=== PATIENT | male | born 1950 | race Caucasian/White ===

== ENCOUNTER 2020-02-23 13:11 | Outpatient (CLI) | payer OTHER, SELFPAY ==
--- NOTE | 2020-02-23 17:19 | ONC CON_ITS ---
Dr. Patel New Patient Note Patient: Torito Stevens Unit #: [id number]: 1950 Dicatated By: Max Patel M.D.Date of Visit: Feb 23, 2020 Onc MED New Patient/Consult Referring Physician: Selma Taylor A.P.N. History of Present Illness: Mr. 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 Incidental focal activity and level 7 cervical lymph node however has been stable in size since 2013 thus could be reactive. subsequently in September 2017 he underwent bilateral tonsillectomy, panendoscopy with biopsies, p16 negative, As per medical oncology note from October 14, 2017, patient was treated with combined chemoradiation with cisplatinHis follow-up CT PET scan done in June 2018 showed residual focus of subtle FDG activity within the central portion of left neck lesion, of uncertain significance, close follow-up was recommended. Patient underwent another follow-up CT PET scan on October 16, 2018 which showed focus of FDG activity in the central portion of treated left neck mass stable from exam 3 months prior. Since then patient moved from [place] to [facility] and now wants to establish his care here. His follow-up chest x-ray done by PMD on November 02, 2019 showed no active disease in the chest, questionable obstructive disease. Patient is still smoking about half pack a day, Recently he was evaluated by PMD with progressive hoarseness of voice and patient requested oncology consult in the setting he was referred to us. Patient denies any fever or chills, denies any nausea or vomiting denies any hemoptysis or hematemesis, denies any dysphagia or odynophagia, denies any new bony pains, denies any dry mouth Denies any neck swelling or lymphadenopathy, denies any thrush but, as per patient his voice is changing for the last couple of weeks, patient has mild productive cough with whitish phlegm. And still smoke about half pack a day. Past Medical History: Mr. Gonzalez medical history consists of anxiety, depression, gastroesophageal reflux disease, hepatitis C, hyperlipidemia, left eye scotoma, osteoarthritis, post traumatic stress disorder, and vitamin D deficiency. Past Surgical History: Mr. Gonzalez surgical/procedural history consists of hip joint replacement - left and tonsillectomy. Medications: Gabapentin 1 Tablet (of 900 mg) Oral daily, Simvastatin 1 Tablet (of 20 mg) Oral daily, traMADol HCl 1 Tablet (of 50 mg) Oral four times a day Allergies: No Known Allergies. Social History: Mr. Stevens is and he is an unknown. He is a daily smoker who has smoked 0.5 packs/day for 56 years. He is an active drinker. Family History: Mr. Stevens's mother at age 59: liver disease. pt states his grandmother had brain cancer. Review Of Symptoms: Review of Systems is not available for this patient. Vital Signs: Performed on Feb 23, 2020 15:04: 6, 26.79, 1.98 sq.m, 69.00 in, 99 %, 63 /min, 24 /min, 128/78 mm(hg), 98.5 F, and 181.4 lbs (HIGH). Performance Status: 0 - Fully active, able to carry on all predisease activities without restrictions. (ECOG) Physical Examination: ENMT - No mouth sores, no thrush, No cervical lymphadenopathy, Respiratory - Lungs are clear to auscultation, Cardiovascular - Regular rate and rhythm of heart, Abdomen - Soft, bowel sounds present, Extremities - .No visible edema. Lab/Imaging: Most recent lab results are not available for this patient. 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 At this point, we will consider follow-up CT PET scan, as is previous CT PET scan done in June and September 2018 showed persistent FDG uptake in the central portion of treated left neck mass. And also refer him to ENT Dr. Morales, for evaluation. Patient was advised to quit smoking and was offered any assistance he may need. And patient return to clinic after CT PET scan for further discussion Signed By: Max Patel M.D. <<Signature on File>>
== END 2020-02-23 13:12 | disposition home or self-care (01) ==
LOC: ONCMED 13:13
PROVIDERS: PCP Nurse Practitioner; Visit Provider Internal Medicine Hematology & Oncology
DX: C80.1 Malignant (primary) neoplasm, unspecified (principal); C79.89 Secondary malignant neoplasm of other specified sites; Z86.008 Personal history of in-situ neoplasm of other site; F17.210 Nicotine dependence, cigarettes, uncomplicated; Z92.3 Personal history of irradiation; Z92.21 Personal history of antineoplastic chemotherapy
CPT/HCPCS: 99203

== ENCOUNTER 2020-03-08 06:19 | Outpatient (CLI) | payer OTHER, SELFPAY ==
[2020-03-08 09:09] LABS: Basophils % 0.7 %; Eosinophils # 0.1 10^3/uL (0.0-0.8); Eosinophils % 2.2 %; Lymphocytes # 0.8 10^3/uL (0.8-4.8); Lymphocytes % 18.2 %; Mean Corpuscular HGB Conc 33.3 g/dL (30.0-36.0); Mean Corpuscular Hemoglobin 33.4 pg (28.0-34.0); Mean Corpuscular Volume 100.2 fL (80-94); Mean Platelet Volume 10.5 fL (7.4-10.4); Monocytes # 0.4 10^3/uL (0.2-0.9); Monocytes % 9.2 %; Neutrophils # 2.87 10^3/uL (1.8-7.7); Neutrophils % 69.5 %; Nucleated Red Blood Cells % 0 %; Platelet Count 166 10^3/cmm (130-400); Red Blood Count 4.19 10^6/uL (4.1-5.3); White Blood Count 4.1 10^3/uL (4.0-10.0)
[2020-03-08 09:29] LABS: Alanine Aminotransferase 16 U/L (0-41); Albumin Level 4.2 g/dL (3.5-5.2); Alkaline Phosphatase 69 IU/L (40-130); Anion Gap 14.2 (5-19); Aspartate Amino Transferase 17 U/L (0-40); Blood Urea Nitrogen 16 mg/dL (8-23); Calcium 9.2 mg/dL (8.5-10.5); Carbon Dioxide 25 mmol/L (22-29); Chloride 103 mmol/L (98-107); Globulin 2.9 g/dL (1.3-4.6); Glomerular Filtration Rate 73.9 mL/min (90-130); Glucose 103 mg/dL (65-115); Osmolality Calculated 287 mOsm/kg (285-295); Potassium 4.2 mmol/L (3.5-5.1); Sodium 138 mmol/L (136-145); Total Bilirubin 0.5 mg/dL (0.15-1.2); Total Protein 7.1 g/dL (6.6-8.7)
== END 2020-03-08 06:20 | disposition home or self-care (01) ==
LOC: ONCMED 06:20
PROVIDERS: PCP Nurse Practitioner; Visit Provider Internal Medicine Hematology & Oncology
DX: D02.0 Carcinoma in situ of larynx (principal)
CPT/HCPCS: 36415; 80053; 85025

== ENCOUNTER 2020-03-09 05:43 | Outpatient (CLI) | payer OTHER, SELFPAY ==
--- NOTE | 2020-03-09 15:54 | ONC FU_ITS ---
Dr. Patel follow up note Patient: Torito Stevens Unit #: [id number]: 1950 Dicatated By: Max Patel M.D.Date of Visit:Mar 09, 2020 Onc Med Follow-up/Prog Note History of Present Illness: Mr. 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 Incidental focal activity and level 7 cervical lymph node however has been stable in size since 2013 thus could be reactive. subsequently in September 2017 he underwent bilateral tonsillectomy, panendoscopy with biopsies, p16 negative, As per medical oncology note from October 14, 2017, patient was treated with combined chemoradiation with cisplatinHis follow-up CT PET scan done in June 2018 showed residual focus of subtle FDG activity within the central portion of left neck lesion, of uncertain significance, close follow-up was recommended. Patient underwent another follow-up CT PET scan on October 16, 2018 which showed focus of FDG activity in the central portion of treated left neck mass stable from exam 3 months prior. Since then patient moved from [place] to [facility] and now wants to establish his care here. His follow-up chest x-ray done by PMD on November 02, 2019 showed no active disease in the chest, questionable obstructive disease. Patient is still smoking about half pack a day, Recently he was evaluated by PMD with progressive hoarseness of voice and patient requested oncology consult in the setting he was referred to us. Follow-up CT PET scan done on March 01, 2020 showed no strong evidence for recurrent or metastatic disease Came for follow-up, denies any specific complaint except hoarseness of voice but is improving now since he has seen Dr. Morales and he was given steroid injection and oral antibiotics. Medications: Gabapentin 1 Tablet (of 900 mg) Oral daily, Simvastatin 1 Tablet (of 20 mg) Oral daily, traMADol HCl 1 Tablet (of 50 mg) Oral four times a day Allergies: No Known Allergies. Review of Systems: Review of Systems is not available for this patient. Vital Signs: Performed on Mar 09, 2020 09:19 Height - 69.00 in Weight - 180.8 lbs (LOW) BSA - 1.98 sq.m BMI - 26.70 Temperature - 98.4 F Pulse - 74 /min Respiration - 22 /min BP - 156/90 mm(hg) (HIGH) O2 Sat - 100 % Pain - 8 Performance Status: 0 - Fully active, able to carry on all predisease activities without restrictions. (ECOG) Physical Examination: ENMT - No mouth sores, no thrush, no jaundice, Respiratory - Lungs are clear to auscultation, Cardiovascular - Regular rate and rhythm of heart, Abdomen - Soft, bowel sounds present, Extremities - No visible edema or rash. Lab/Imaging: Most recent lab results are not available for this patient. 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 Moarles ENT, and was informed there is no evidence of local recurrence and CT PET scan done recently showed no evidence of recurrence of disease. His lab work-up looks reasonable and patient will return to clinic in 6 months with CBC CMP Signed By: Max Patel M.D. <<Signature on File>>
== END 2020-03-09 05:44 | disposition home or self-care (01) ==
LOC: ONCMED 05:44
PROVIDERS: PCP Nurse Practitioner; Visit Provider Internal Medicine Hematology & Oncology
DX: Z08 Encounter for follow-up examination after completed treatment for malignant neoplasm (principal); Z85.9 Personal history of malignant neoplasm, unspecified; Z86.008 Personal history of in-situ neoplasm of other site; F17.210 Nicotine dependence, cigarettes, uncomplicated; Z92.3 Personal history of irradiation; Z92.21 Personal history of antineoplastic chemotherapy
CPT/HCPCS: G0463

== ENCOUNTER 2020-09-06 12:54 | Outpatient (CLI) | payer OTHER, SELFPAY ==
[2020-09-06 13:55] LABS: Basophils % 0.8 %; Eosinophils # 0.2 10^3/uL (0.0-0.8); Eosinophils % 3.8 %; Hematocrit 37.7 % (42.0-52.0); Hemoglobin 12.9 g/dL (11.7-16.6); Lymphocytes # 0.8 10^3/uL (0.8-4.8); Lymphocytes % 14.3 %; Mean Corpuscular HGB Conc 34.2 g/dL (30.0-36.0); Mean Corpuscular Hemoglobin 33.1 pg (28.0-34.0); Mean Corpuscular Volume 96.7 fL (80-94); Mean Platelet Volume 9.6 fL (7.4-10.4); Monocytes # 0.4 10^3/uL (0.2-0.9); Monocytes % 7.1 %; Neutrophils # 3.93 10^3/uL (1.8-7.7); Neutrophils % 73.8 %; Nucleated Red Blood Cells % 0 %; Platelet Count 134 10^3/cmm (130-400); Red Cell Distribution Width 12.2 % (12.1-15.1); White Blood Count 5.3 10^3/uL (4.0-10.0)
[2020-09-06 14:18] LABS: Alanine Aminotransferase 10 U/L (0-41); Albumin Level 4.2 g/dL (3.5-5.2); Alkaline Phosphatase 63 IU/L (40-130); Anion Gap 13.5 (5-19); Aspartate Amino Transferase 17 U/L (0-40); Blood Urea Nitrogen 10 mg/dL (8-23); Calcium 8.8 mg/dL (8.5-10.5); Carbon Dioxide 25 mmol/L (22-29); Chloride 104 mmol/L (98-107); Globulin 2.9 g/dL (1.3-4.6); Glucose 92 mg/dL (65-115); Osmolality Calculated 285 mOsm/kg (285-295); Potassium 4.5 mmol/L (3.5-5.1); Sodium 138 mmol/L (136-145); Total Bilirubin 0.5 mg/dL (0.15-1.2); Total Protein 7.1 g/dL (6.6-8.7)
--- NOTE | 2020-09-06 15:42 | ONC FU_ITS ---
Dr. Patel follow up note Patient: Torito Stevens Unit #: [id number]: 1950 Dicatated By: Max Patel M.D.Date of Visit:September 06, 2020 Onc Med Follow-up/Prog Note History of Present Illness: Mr. 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 Incidental focal activity and level 7 cervical lymph node however has been stable in size since 2013 thus could be reactive. subsequently in September 2017 he underwent bilateral tonsillectomy, panendoscopy with biopsies, p16 negative, As per medical oncology note from October 14, 2017, patient was treated with combined chemoradiation with cisplatinHis follow-up CT PET scan done in June 2018 showed residual focus of subtle FDG activity within the central portion of left neck lesion, of uncertain significance, close follow-up was recommended. Patient underwent another follow-up CT PET scan on October 16, 2018 which showed focus of FDG activity in the central portion of treated left neck mass stable from exam 3 months prior. Since then patient moved from [place] to [facility] and now wants to establish his care here. His follow-up chest x-ray done by PMD on November 02, 2019 showed no active disease in the chest, questionable obstructive disease. Patient is still smoking about half pack a day, Recently he was evaluated by PMD with progressive hoarseness of voice and patient requested oncology consult in the setting he was referred to us. Came for follow-up, denies any specific complaints, no fever chills, no nausea or vomiting, no diarrhea constipation, no dysphagia now complaining of receding gum and dental problem for which he is being evaluated by dentist. And also following ENT on regular basis. Still smoking actively. Medications: Gabapentin 1 Tablet (of 900 mg) Oral daily, Simvastatin 1 Tablet (of 20 mg) Oral daily, traMADol HCl 1 Tablet (of 50 mg) Oral four times a day Allergies: No Known Allergies. Review of Systems: Review of Systems is not available for this patient. Vital Signs: Performed on September 06, 2020 14:51 Height - 69.00 in Weight - 187.0 lbs (HIGH) BSA - 2.01 sq.m BMI - 27.62 Temperature - 97.8 F (LOW) Pulse - 65 /min Respiration - 17 /min BP - 144/99 mm(hg) (HIGH) O2 Sat - 96 % Pain - 3 Performance Status: 0 - Fully active, able to carry on all predisease activities without restrictions. (ECOG) Physical Examination: ENMT - No mouth sores, no thrush, mild gingivitis and poor dentition, no cervical lymphadenopathy, Respiratory - Lungs are clear to auscultation, Cardiovascular - Regular rate and rhythm of heart, Abdomen - Soft, bowel sounds present, Extremities - No visible edema. Lab/Imaging: Most recent lab results are not available for this patient. 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 Patient was advised to quit smoking and was offered any assistance he may need Signed By: Max Patel M.D. <<Signature on File>>
== END 2020-09-06 12:55 | disposition home or self-care (01) ==
PROVIDERS: PCP Nurse Practitioner; Visit Provider Internal Medicine Hematology & Oncology
DX: C76.0 Malignant neoplasm of head, face and neck (principal); R49.0 Dysphonia; J04.0 Acute laryngitis; Z79.899 Other long term (current) drug therapy
CPT/HCPCS: 36415; 80053; 85025; 99214

== ENCOUNTER 2021-01-04 13:10 | Outpatient (CLI) | payer OTHER, SELFPAY | END 2021-01-04 13:11 | disposition home or self-care (01) | LOC: WOUND 13:12 | PROVIDERS: PCP Nurse Practitioner; Visit Provider Thoracic Surgery (Cardiothoracic Vascular Surgery) | DX: M27.2 Inflammatory conditions of jaws (principal); Y84.2 Radiological procedure and radiotherapy as the cause of abnormal reaction of the patient, or of later complication, without mention of misadventure at the time of the procedure; Y78.1 Therapeutic (nonsurgical) and rehabilitative radiological devices associated with adverse incidents; F17.210 Nicotine dependence, cigarettes, uncomplicated | CPT/HCPCS: 99212 ==

== ENCOUNTER 2021-01-04 15:14 | Outpatient (CLI) | payer OTHER, SELFPAY ==
--- NOTE | 2021-01-04 15:21 | XR_ITS ---
WS: [id number] CHEST 2 VIEWS HISTORY: ENCOUNTER SCREENING FOR RESPIRATORY DISORDERS COMPARISON: 11/02/2019 Lungs: Moderate pulmonary hyperexpansion. Flattening of the diaphragms and changes of emphysema. No p ulmonary nodule or mass. Cardiac size: Normal. Mediastinum/Aorta: Mild atherosclerosis aorta. Bones: Normal. XR/XR chest 2V* [id number] IMPRESSION: 1. Chronic emphysema. 2. No pneumonia or pulmonary nodule.
--- NOTE | 2021-01-04 15:43 | ECG_ITS ---
[facility] Test Date: 2021-01-04 Pat Name: Torito Stevens Department: Room: Gender: Male Pedigree Tracer: : 1950 Requested By: Mahendra Toro Order Number: [id number] Evan MD: NGHIA CHANEL Measurements Intervals [place] Rate: 55 P: 37 OH: 158 QRS: 16 QRSD: 90 T: 66 QT: 396 QTc: 379 Interpretive Statements SINUS BRADYCARDIA No previous ECG available for comparison Electronically Signed On 01-04-2021 19:28:16 CDT by NGHIA CHANEL [id number]
[2021-01-04 16:23] LABS: Basophils % 0.2 %; Eosinophils # 0.1 10^3/uL (0.0-0.8); Eosinophils % 2.5 %; Hematocrit 37.3 % (42.0-52.0); Hemoglobin 12.5 g/dL (11.7-16.6); Lymphocytes # 1.3 10^3/uL (0.8-4.8); Lymphocytes % 28.4 %; Mean Corpuscular HGB Conc 33.5 g/dL (30.0-36.0); Mean Corpuscular Hemoglobin 33.7 pg (28.0-34.0); Mean Corpuscular Volume 100.5 fl (80-94); Mean Platelet Volume 9.3 fL (7.4-10.4); Monocytes # 0.4 10^3/uL (0.2-0.9); Monocytes % 9.3 %; Neutrophils # 2.63 10^3/uL (1.8-7.7); Neutrophils % 59.4 %; Nucleated Red Blood Cells % 0 %; Platelet Count 105 10^3/cmm (130-400); Red Blood Count 3.71 10^6/uL (4.1-5.3); Red Cell Distribution Width 12.8 % (12.1-15.1); White Blood Count 4.4 10^3/uL (4.0-10.0)
[2021-01-04 17:00] LABS: Alanine Aminotransferase 14 U/L (0-41); Albumin Level 4.2 g/dL (3.5-5.2); Alkaline Phosphatase 61 IU/L (40-130); Anion Gap 14.2 (5-19); Aspartate Amino Transferase 21 U/L (0-40); Blood Urea Nitrogen 10 mg/dL (8-23); Calcium 8.8 mg/dL (8.5-10.5); Carbon Dioxide 26 mmol/L (22-29); Chloride 105 mmol/L (98-107); Globulin 2.7 g/dL (1.3-4.6); Glucose 87 mg/dL (65-115); Osmolality Calculated 290 mOsm/kg (285-295); Potassium 4.2 mmol/L (3.5-5.1); Sodium 141 mmol/L (136-145); Total Bilirubin 0.5 mg/dL (0.15-1.2); Total Protein 6.9 g/dL (6.6-8.7)
== END 2021-01-04 15:15 | disposition home or self-care (01) ==
LOC: RAD 15:17 → RT 15:18
PROVIDERS: PCP Nurse Practitioner; Visit Provider Thoracic Surgery (Cardiothoracic Vascular Surgery)
DX: Z13.83 Encounter for screening for respiratory disorder NEC (principal); R00.1 Bradycardia, unspecified; J43.9 Emphysema, unspecified
CPT/HCPCS: 36415; 71046; 80053; 85025; 93005

== ENCOUNTER 2021-01-06 13:50 | Outpatient (CLI) | payer OTHER, SELFPAY ==
--- NOTE | 2021-01-06 14:33 | CT_ITS ---
WS: [id number] CT CHEST TECHNIQUE: Contrast enhanced CT of the chest with coronal and sagittal reformatted images. CLINICAL INFORMATION: ENCOUNTER SCREENING FOR RESPIRATORY DISORDER COMPARISON: Radiograph January 04, 2021 DLP: 895.[address] scans at [facility] use at least one of these dose optimization techniques: automated e xposure control; mA and/or kV adjustment per patient size (includes targeted exams where dose is matc hed to clinical indication); or iterative reconstruction. FINDINGS: Mild chronic emphysematous changes. No acute pulmonary infiltrates. No focal pneumonia or pleural flu id. No suspicious pulmonary parenchymal abnormalities. No mediastinal or hilar lymphadenopathy. No axillary lymphadenopathy. Normal caliber thoracic aorta. Aortic Calcification. Cholelithiasis with prominent gallstone measurin g 12 mm. Adrenal glands are normal. Partially evaluated bilateral renal cysts. Normal GE junction. Mo derate hypertrophic changes thoracic spine. CT/CT chest w con* [id number] IMPRESSION: 1. Mild chronic emphysematous changes. No acute pulmonary infiltrates. No foca l pneumonia or pleural fluid. 2. No mediastinal or hilar lymphadenopathy. 3. Cholelithiasis. This can be followed up with ultrasound.
[2021-01-06] MEDS: iohexol 300 mg/mL 100 mL Btl IV (14:57)
== END 2021-01-06 13:51 | disposition home or self-care (01) ==
PROVIDERS: PCP Nurse Practitioner; Visit Provider Emergency Medicine
DX: Z13.83 Encounter for screening for respiratory disorder NEC (principal); K80.20 Calculus of gallbladder without cholecystitis without obstruction
CPT/HCPCS: 71260; Q9967

== ENCOUNTER 2021-01-09 09:50 | Outpatient (CLI) | payer OTHER, SELFPAY | END 2021-01-09 09:51 | disposition home or self-care (01) | LOC: WOUND 09:50 | PROVIDERS: PCP Nurse Practitioner; Visit Provider Emergency Medicine | DX: M27.2 Inflammatory conditions of jaws (principal) | CPT/HCPCS: G0277 ==

== ENCOUNTER 2021-01-10 09:43 | Outpatient (CLI) | payer OTHER, SELFPAY | END 2021-01-10 09:44 | disposition home or self-care (01) | LOC: WOUND 09:44 | PROVIDERS: PCP Nurse Practitioner; Visit Provider Thoracic Surgery (Cardiothoracic Vascular Surgery) | DX: M27.2 Inflammatory conditions of jaws (principal) | CPT/HCPCS: G0277 ==

== ENCOUNTER 2021-01-11 09:03 | Outpatient (CLI) | payer OTHER, SELFPAY | END 2021-01-11 09:04 | disposition home or self-care (01) | LOC: WOUND 09:03 | PROVIDERS: PCP Nurse Practitioner; Visit Provider Thoracic Surgery (Cardiothoracic Vascular Surgery) | DX: M27.2 Inflammatory conditions of jaws (principal) | CPT/HCPCS: G0277 ==

== ENCOUNTER 2021-01-12 09:04 | Outpatient (CLI) | payer OTHER, SELFPAY | END 2021-01-12 09:05 | disposition home or self-care (01) | LOC: WOUND 09:05 | PROVIDERS: PCP Nurse Practitioner; Visit Provider Emergency Medicine | DX: M27.2 Inflammatory conditions of jaws (principal) | CPT/HCPCS: G0277 ==

== ENCOUNTER 2021-01-13 09:08 | Outpatient (CLI) | payer OTHER, SELFPAY | END 2021-01-13 09:09 | disposition home or self-care (01) | LOC: WOUND 09:08 | PROVIDERS: PCP Nurse Practitioner; Visit Provider Surgery | DX: M27.2 Inflammatory conditions of jaws (principal) | CPT/HCPCS: G0277 ==

== ENCOUNTER 2021-01-16 09:17 | Outpatient (CLI) | payer OTHER, SELFPAY | END 2021-01-16 09:18 | disposition home or self-care (01) | LOC: WOUND 09:17 | PROVIDERS: PCP Nurse Practitioner; Visit Provider Emergency Medicine | DX: M27.2 Inflammatory conditions of jaws (principal) | CPT/HCPCS: G0277 ==

== ENCOUNTER 2021-01-17 09:04 | Outpatient (CLI) | payer OTHER, SELFPAY | END 2021-01-17 09:05 | disposition home or self-care (01) | LOC: WOUND 09:05 | PROVIDERS: PCP Nurse Practitioner; Visit Provider Thoracic Surgery (Cardiothoracic Vascular Surgery) | DX: M27.2 Inflammatory conditions of jaws (principal) | CPT/HCPCS: G0277 ==

== ENCOUNTER 2021-01-18 13:00 | Outpatient (CLI) | payer OTHER, SELFPAY | END 2021-01-18 13:01 | disposition home or self-care (01) | LOC: WOUND 13:00 | PROVIDERS: PCP Nurse Practitioner; Visit Provider Thoracic Surgery (Cardiothoracic Vascular Surgery) | DX: M27.2 Inflammatory conditions of jaws (principal) | CPT/HCPCS: G0277 ==

== ENCOUNTER 2021-01-19 09:16 | Outpatient (CLI) | payer OTHER, SELFPAY | END 2021-01-19 09:17 | disposition home or self-care (01) | LOC: WOUND 09:17 | PROVIDERS: PCP Nurse Practitioner; Visit Provider Emergency Medicine | DX: M27.2 Inflammatory conditions of jaws (principal) | CPT/HCPCS: G0277 ==

== ENCOUNTER 2021-01-20 09:14 | Outpatient (CLI) | payer OTHER, SELFPAY | END 2021-01-20 09:15 | disposition home or self-care (01) | LOC: WOUND 09:15 | PROVIDERS: PCP Nurse Practitioner; Visit Provider Nurse Practitioner Family | DX: M27.2 Inflammatory conditions of jaws (principal) | CPT/HCPCS: G0277 ==

== ENCOUNTER 2021-01-23 09:02 | Outpatient (CLI) | payer OTHER, SELFPAY | END 2021-01-23 09:03 | disposition home or self-care (01) | LOC: WOUND 09:03 | PROVIDERS: PCP Nurse Practitioner; Visit Provider Emergency Medicine | DX: M27.2 Inflammatory conditions of jaws (principal) | CPT/HCPCS: G0277 ==

== ENCOUNTER 2021-01-24 09:16 | Outpatient (CLI) | payer OTHER, SELFPAY | END 2021-01-24 09:17 | disposition home or self-care (01) | LOC: WOUND 09:17 | PROVIDERS: PCP Nurse Practitioner; Visit Provider Thoracic Surgery (Cardiothoracic Vascular Surgery) | DX: M27.2 Inflammatory conditions of jaws (principal) | CPT/HCPCS: G0277 ==

== ENCOUNTER 2021-01-25 10:00 | Outpatient (CLI) | payer OTHER, SELFPAY | END 2021-01-25 10:01 | disposition home or self-care (01) | LOC: WOUND 01-31 13:57 | PROVIDERS: PCP Nurse Practitioner; Visit Provider Thoracic Surgery (Cardiothoracic Vascular Surgery) | DX: M27.2 Inflammatory conditions of jaws (principal) | CPT/HCPCS: G0277 ==

== ENCOUNTER 2021-01-26 09:15 | Outpatient (CLI) | payer OTHER, SELFPAY | END 2021-01-26 09:16 | disposition home or self-care (01) | LOC: WOUND 09:17 | PROVIDERS: PCP Nurse Practitioner; Visit Provider Nurse Practitioner Family | DX: M27.2 Inflammatory conditions of jaws (principal) | CPT/HCPCS: G0277 ==

== ENCOUNTER 2021-01-27 09:14 | Outpatient (CLI) | payer OTHER, SELFPAY | END 2021-01-27 09:15 | disposition home or self-care (01) | LOC: WOUND 09:19 | PROVIDERS: PCP Nurse Practitioner; Visit Provider Surgery | DX: M27.2 Inflammatory conditions of jaws (principal) | CPT/HCPCS: G0277 ==

== ENCOUNTER 2021-01-30 09:21 | Outpatient (CLI) | payer OTHER, SELFPAY | END 2021-01-30 09:22 | disposition home or self-care (01) | LOC: WOUND 09:22 | PROVIDERS: PCP Nurse Practitioner; Visit Provider Emergency Medicine | DX: M27.2 Inflammatory conditions of jaws (principal) | CPT/HCPCS: G0277 ==

== ENCOUNTER 2021-01-31 09:08 | Outpatient (CLI) | payer OTHER, SELFPAY | END 2021-01-31 09:09 | disposition home or self-care (01) | LOC: WOUND 09:09 | PROVIDERS: PCP Nurse Practitioner; Visit Provider Thoracic Surgery (Cardiothoracic Vascular Surgery) | DX: M27.2 Inflammatory conditions of jaws (principal) | CPT/HCPCS: G0277 ==

== ENCOUNTER 2021-02-02 14:45 | Outpatient (CLI) | payer OTHER, SELFPAY | END 2021-02-02 14:46 | disposition home or self-care (01) | PROVIDERS: PCP Nurse Practitioner; Visit Provider Emergency Medicine | DX: M27.2 Inflammatory conditions of jaws (principal) | CPT/HCPCS: G0277 ==

== ENCOUNTER 2021-02-03 09:13 | Outpatient (CLI) | payer OTHER, SELFPAY | END 2021-02-03 09:14 | disposition home or self-care (01) | LOC: WOUND 09:14 | PROVIDERS: PCP Nurse Practitioner; Visit Provider Nurse Practitioner Family | DX: M27.2 Inflammatory conditions of jaws (principal) | CPT/HCPCS: G0277 ==

== ENCOUNTER 2021-02-06 13:05 | Outpatient (CLI) | payer OTHER, SELFPAY | END 2021-02-06 13:06 | disposition home or self-care (01) | LOC: WOUND 13:06 | PROVIDERS: PCP Nurse Practitioner; Visit Provider Emergency Medicine | DX: M27.2 Inflammatory conditions of jaws (principal) | CPT/HCPCS: G0277 ==

== ENCOUNTER 2021-02-07 09:27 | Outpatient (CLI) | payer OTHER, SELFPAY | END 2021-02-07 09:28 | disposition home or self-care (01) | LOC: WOUND 09:29 | PROVIDERS: PCP Nurse Practitioner; Visit Provider Thoracic Surgery (Cardiothoracic Vascular Surgery) | DX: M27.2 Inflammatory conditions of jaws (principal) | CPT/HCPCS: G0277 ==

== ENCOUNTER 2021-02-08 09:17 | Outpatient (CLI) | payer OTHER, SELFPAY | END 2021-02-08 09:18 | disposition home or self-care (01) | LOC: WOUND 09:18 | PROVIDERS: PCP Nurse Practitioner; Visit Provider Nurse Practitioner Family | DX: M27.2 Inflammatory conditions of jaws (principal) | CPT/HCPCS: G0277 ==

== ENCOUNTER 2021-02-10 09:19 | Outpatient (CLI) | payer OTHER, SELFPAY | END 2021-02-10 09:20 | disposition home or self-care (01) | LOC: WOUND 09:20 | PROVIDERS: PCP Nurse Practitioner; Visit Provider Surgery | DX: M27.2 Inflammatory conditions of jaws (principal) | CPT/HCPCS: G0277 ==

== ENCOUNTER 2021-02-13 09:58 | Outpatient (CLI) | payer OTHER, SELFPAY | END 2021-02-13 09:59 | disposition home or self-care (01) | LOC: WOUND 10:00 | PROVIDERS: PCP Nurse Practitioner; Visit Provider Nurse Practitioner Family | DX: M27.2 Inflammatory conditions of jaws (principal) | CPT/HCPCS: G0277 ==

== ENCOUNTER 2021-02-14 09:22 | Outpatient (CLI) | payer OTHER, SELFPAY | END 2021-02-14 09:23 | disposition home or self-care (01) | LOC: WOUND 09:23 | PROVIDERS: PCP Nurse Practitioner; Visit Provider Thoracic Surgery (Cardiothoracic Vascular Surgery) | DX: M27.2 Inflammatory conditions of jaws (principal) | CPT/HCPCS: G0277 ==

== ENCOUNTER 2021-02-15 09:10 | Outpatient (CLI) | payer OTHER, SELFPAY | END 2021-02-15 09:11 | disposition home or self-care (01) | LOC: WOUND 09:11 | PROVIDERS: PCP Nurse Practitioner; Visit Provider Thoracic Surgery (Cardiothoracic Vascular Surgery) | DX: M27.2 Inflammatory conditions of jaws (principal) | CPT/HCPCS: G0277 ==

== ENCOUNTER 2021-02-16 09:11 | Outpatient (CLI) | payer OTHER, SELFPAY | END 2021-02-16 09:12 | disposition home or self-care (01) | LOC: WOUND 09:11 | PROVIDERS: PCP Nurse Practitioner; Visit Provider Nurse Practitioner Family | DX: M27.2 Inflammatory conditions of jaws (principal) | CPT/HCPCS: G0277 ==

== ENCOUNTER 2021-02-23 08:55 | Outpatient (CLI) | payer OTHER, SELFPAY | END 2021-02-23 08:56 | disposition home or self-care (01) | LOC: WOUND 08:56 | PROVIDERS: PCP Nurse Practitioner; Visit Provider Nurse Practitioner Family | DX: M27.2 Inflammatory conditions of jaws (principal) | CPT/HCPCS: G0277 ==

== ENCOUNTER 2021-02-24 09:32 | Outpatient (CLI) | payer OTHER, SELFPAY | END 2021-02-24 09:33 | disposition home or self-care (01) | LOC: WOUND 09:33 | PROVIDERS: PCP Nurse Practitioner; Visit Provider Surgery | DX: M27.2 Inflammatory conditions of jaws (principal) | CPT/HCPCS: G0277 ==

== ENCOUNTER 2021-02-27 09:09 | Outpatient (CLI) | payer OTHER, SELFPAY | END 2021-02-27 09:10 | disposition home or self-care (01) | LOC: WOUND 09:10 | PROVIDERS: PCP Nurse Practitioner; Visit Provider Nurse Practitioner Family | DX: M27.2 Inflammatory conditions of jaws (principal) | CPT/HCPCS: 99183; G0277 ==

== ENCOUNTER 2021-02-28 09:59 | Outpatient (CLI) | payer OTHER, SELFPAY | END 2021-02-28 10:00 | disposition home or self-care (01) | LOC: WOUND 10:00 | PROVIDERS: PCP Nurse Practitioner; Visit Provider Nurse Practitioner Family | DX: M27.2 Inflammatory conditions of jaws (principal) | CPT/HCPCS: G0277 ==

== ENCOUNTER 2021-03-02 08:57 | Outpatient (CLI) | payer OTHER, SELFPAY | END 2021-03-02 08:58 | disposition home or self-care (01) | LOC: WOUND 08:58 | PROVIDERS: PCP Nurse Practitioner; Visit Provider Emergency Medicine | DX: M27.2 Inflammatory conditions of jaws (principal) | CPT/HCPCS: G0277 ==

== ENCOUNTER 2021-03-03 13:01 | Outpatient (CLI) | payer OTHER, SELFPAY | END 2021-03-03 13:02 | disposition home or self-care (01) | LOC: WOUND 13:02 | PROVIDERS: PCP Nurse Practitioner; Visit Provider Surgery | DX: M27.2 Inflammatory conditions of jaws (principal) | CPT/HCPCS: G0277 ==

== ENCOUNTER 2021-03-06 09:10 | Outpatient (CLI) | payer OTHER, SELFPAY | END 2021-03-06 09:11 | disposition home or self-care (01) | LOC: WOUND 09:11 | PROVIDERS: PCP Nurse Practitioner; Visit Provider Emergency Medicine | DX: M27.2 Inflammatory conditions of jaws (principal) | CPT/HCPCS: G0277 ==

== ENCOUNTER 2021-03-07 09:22 | Outpatient (CLI) | payer OTHER, SELFPAY | END 2021-03-07 09:23 | disposition home or self-care (01) | LOC: WOUND 09:23 | PROVIDERS: PCP Nurse Practitioner; Visit Provider Emergency Medicine | DX: M27.2 Inflammatory conditions of jaws (principal) | CPT/HCPCS: G0277 ==

== ENCOUNTER 2021-03-15 10:52 | Outpatient (CLI) | payer OTHER, SELFPAY ==
[2021-03-15 12:24] LABS: Alanine Aminotransferase 12 U/L (0-41); Albumin Level 4.4 g/dL (3.5-5.2); Alkaline Phosphatase 67 IU/L (40-130); Aspartate Amino Transferase 20 U/L (0-40); Blood Urea Nitrogen 14 mg/dL (8-23); Carbon Dioxide 27 mmol/L (22-29); Chloride 102 mmol/L (98-107); Globulin 2.9 g/dL (1.3-4.6); Glucose 69 mg/dL (65-115); Osmolality Calculated 285 mOsm/kg (285-295); Sodium 138 mmol/L (136-145); Total Bilirubin 0.4 mg/dL (0.15-1.2); Total Protein 7.3 g/dL (6.6-8.7)
[2021-03-15 12:35] LABS: Anion Gap 13.4 (5-19); Potassium 4.4 mmol/L (3.5-5.1)
[2021-03-15 13:42] LABS: Basophils % 0.9 %; Eosinophils # 0.1 10^3/uL (0.0-0.8); Eosinophils % 2.3 %; Hematocrit 36.6 % (42.0-52.0); Hemoglobin 12.6 g/dL (11.7-16.6); Lymphocytes % 21.9 %; Mean Corpuscular HGB Conc 34.4 g/dL (30.0-36.0); Mean Corpuscular Hemoglobin 33.1 pg (28.0-34.0); Mean Corpuscular Volume 96.1 fl (80-94); Mean Platelet Volume 9.8 fL (7.4-10.4); Monocytes # 0.4 10^3/uL (0.2-0.9); Neutrophils # 2.94 10^3/uL (1.8-7.7); Neutrophils % 66.9 %; Nucleated Red Blood Cells % 0 %; Platelet Count 158 10^3/cmm (130-400); Red Blood Count 3.81 10^6/uL (4.1-5.3); Red Cell Distribution Width 11.9 % (12.1-15.1); White Blood Count 4.4 10^3/uL (4.0-10.0)
--- NOTE | 2021-03-15 16:47 | ONC FU_ITS ---
Dr. Patel follow up note Patient: Torito Stevens Unit #: [id number]: 1950 Dicatated By: Max Patel M.D.Date of Visit:Mar 15, 2021 Onc Med Follow-up/Prog Note History of Present Illness: Mr. 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 Incidental focal activity and level 7 cervical lymph node however has been stable in size since 2013 thus could be reactive. subsequently in September 2017 he underwent bilateral tonsillectomy, panendoscopy with biopsies, p16 negative, As per medical oncology note from October 14, 2017, patient was treated with combined chemoradiation with cisplatinHis follow-up CT PET scan done in June 2018 showed residual focus of subtle FDG activity within the central portion of left neck lesion, of uncertain significance, close follow-up was recommended. Patient underwent another follow-up CT PET scan on October 16, 2018 which showed focus of FDG activity in the central portion of treated left neck mass stable from exam 3 months prior. Since then patient moved from [place] to [facility] and now wants to establish his care here. His follow-up chest x-ray done by PMD on November 02, 2019 showed no active disease in the chest, questionable obstructive disease. Patient is still smoking about half pack a day, Recently he was evaluated by PMD with progressive hoarseness of voice and patient requested oncology consult in the setting he was referred to us. Came for follow-up, denies any specific complaint except chronic hoarseness of voice, as per patient he has seen and followed by ENT, Dr. 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 As per patient recently he has seen oral surgeon for gum problem and he was diagnosed with radiation-induced dental issues and now getting a new denture. Denies any hemoptysis or hematemesis, denies any dysphagia, denies any sore throat, denies any weight loss, denies any new bony pains. Medications: Gabapentin 1 Tablet (of 900 mg) Oral daily, IBU 1 Tablet (of 600 mg) Oral four times a day PRN, Simvastatin 1 Tablet (of 20 mg) Oral daily Allergies: No Known Allergies. Review of Systems: Review of Systems is not available for this patient. Vital Signs: Performed on Mar 15, 2021 13:14 Height - 69.00 in Weight - 179.6 lbs (LOW) BSA - 1.97 sq.m BMI - 26.52 Temperature - 97.6 F (LOW) Pulse - 67 /min Respiration - 16 /min BP - 109/70 mm(hg) O2 Sat - 99 % Pain - 6 Fatigue - 4 Performance Status: 0 - Fully active, able to carry on all predisease activities without restrictions. (ECOG) Physical Examination: ENMT - No mouth sores, no thrush, no jaundice, no cervical lymphadenopathy, Respiratory - Lungs are clear to auscultation, Cardiovascular - Regular rate and rhythm of heart, Abdomen - Soft, bowel sounds present, Extremities - No visible edema. Lab/Imaging: Most recent lab results are not available for this patient. 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 Morales, and found him that his hoarseness is due to radiation-induced laryngitis. As per patient, he is following with ENT on regular basis Patient was also advised to quit smoking, and was offered any assistance he may need Return to clinic in 6 months Signed By: Max Patel M.D. <<Signature on File>>
== END 2021-03-15 10:53 | disposition home or self-care (01) ==
PROVIDERS: PCP Nurse Practitioner; Visit Provider Internal Medicine Hematology & Oncology
DX: Z08 Encounter for follow-up examination after completed treatment for malignant neoplasm (principal); Z85.89 Personal history of malignant neoplasm of other organs and systems; J04.0 Acute laryngitis; Z92.21 Personal history of antineoplastic chemotherapy; Z92.3 Personal history of irradiation
CPT/HCPCS: 36415; 80053; 85025; 99214

== ENCOUNTER 2021-10-05 12:35 | Oncology outpatient (recurring) (ONCR) | payer OTHER, SELFPAY ==
[2021-10-05 13:02] LABS: Basophils % 0.9 %; Eosinophils # 0.3 10^3/uL (0.0-0.8); Eosinophils % 5.7 %; Hematocrit 37.3 % (42.0-52.0); Hemoglobin 13.2 g/dL (11.7-16.6); Mean Corpuscular HGB Conc 35.4 g/dL (30.0-36.0); Mean Corpuscular Hemoglobin 32.8 pg (28.0-34.0); Mean Corpuscular Volume 92.8 fl (80-94); Mean Platelet Volume 9.7 fL (7.4-10.4); Monocytes # 0.3 10^3/uL (0.2-0.9); Monocytes % 6.5 %; Neutrophils # 2.97 10^3/uL (1.8-7.7); Neutrophils % 64.7 %; Nucleated Red Blood Cells % 0 %; Platelet Count 126 10^3/cmm (130-400); Red Blood Count 4.02 10^6/uL (4.1-5.3); Red Cell Distribution Width 11.9 % (12.1-15.1); White Blood Count 4.6 10^3/uL (4.0-10.0)
[2021-10-05 13:16] LABS: Alanine Aminotransferase 11 U/L (0-41); Albumin Level 4.4 g/dL (3.5-5.2); Alkaline Phosphatase 69 IU/L (40-130); Anion Gap 14.5 (5-19); Aspartate Amino Transferase 19 U/L (0-40); Blood Urea Nitrogen 15 mg/dL (8-23); Calcium 8.9 mg/dL (8.5-10.5); Carbon Dioxide 25 mmol/L (22-29); Chloride 105 mmol/L (98-107); Glucose 92 mg/dL (65-115); Osmolality Calculated 290 mOsm/kg (285-295); Potassium 4.5 mmol/L (3.5-5.1); Sodium 140 mmol/L (136-145); Total Bilirubin 0.7 mg/dL (0.15-1.2); Total Protein 7.4 g/dL (6.6-8.7)
== END 2021-10-19 23:59 | disposition home or self-care (01) ==
PROVIDERS: PCP Nurse Practitioner; Visit Provider Internal Medicine Hematology & Oncology
DX: D02.0 Carcinoma in situ of larynx (principal); F17.210 Nicotine dependence, cigarettes, uncomplicated
CPT/HCPCS: 36415; 80053; 85025; 99214

== ENCOUNTER 2022-05-14 12:47 | Outpatient (CLI) | payer OTHER, SELFPAY ==
--- NOTE | 2022-05-14 13:13 | US_ITS ---
WS: [id number] THYROID ULTRASOUND HISTORY: ELEVATED THYROID LEVEL COMPARISON: None available. Right lobe: 1.9 cm x 1.8 cm x 4.1 cm (w x ap x l). Volume: 7.2 cm3. Normal size and echotexture. No significant are dominant nodules are present. Left lobe: 1.5 cm x 1.5 cm x 3.0 cm (w x ap x l). Volume: 3.4 cm3. Normal size and echotexture. No significant or dominant nodules are present. Isthmus: 0.4 cm. US/US thyroid [id number] IMPRESSION: Normal thyroid ultrasound.
== END 2022-05-14 12:48 | disposition home or self-care (01) ==
LOC: RAD 12:50
PROVIDERS: PCP Nurse Practitioner; Visit Provider Nurse Practitioner
DX: R94.6 Abnormal results of thyroid function studies (principal)
CPT/HCPCS: 76536

== ENCOUNTER 2022-06-18 13:35 | Outpatient (CLI) | payer OTHER, SELFPAY ==
--- NOTE | 2022-06-18 14:00 | CT_ITS ---
WS: [id number] CT CHEST WITH INTRAVENOUS CONTRAST HISTORY: Chronic smoker and history of head/neck cancer TECHNIQUE: Contiguous 5 mm axial imaging performed on the thorax. Coronal and sagittal reformats are submitted. All CT scans at [facility] use at least one of these dose optimization techniques: automated exposure control; mA and/or kV adjustment per patient size (includes targeted exams where dose is matched to clinical indication); or iterative reconstruction. CONTRAST: Omnipaque 350; 95 mL IV. DLP: 400.16 mGy.cm COMPARISON: 01/06/2021 Lungs and central airway: Pulmonary hyperexpansion from emphysema. No pulmonary mass or nodule. No pn eumonia. Pleura: No pleural effusions. There is an area of very mild pleural thickening in the posterior later al mid RIGHT thorax which was also present on the prior study and unchanged. Heart and pericardium: Mild pericardial thickening. Mediastinum and tressa: No mediastinum or hilar adenopathy. Vessels: Mild atherosclerosis aorta. Normal size pulmonary artery. There is mild stenosis involving t he proximal LEFT subclavian artery. Chest wall and lower neck: No soft tissue masses. Upper abdomen: Small hiatal hernia. Visualized liver is negative. Low-attenuation masses within each kidney. These are probably cysts but complex. The most concerning is in the mid LEFT kidney in the la teral cortex measuring 2.0 cm. Hounsfield units are elevated. No interval change since 01/06/2021. Cho lelithiasis. Large calcification in the gallbladder. No adrenal mass. There is mild bilateral adrenal gland thickening. Osseous structures: No destructive process. CT/CT chest w con* [id number] IMPRESSION: 1. Chronic emphysema. No pulmonary mass or nodule. 2. No mediastinal or hilar adenopathy. 3. Cholelithiasis without acute cholecystitis. 4. Mild bilateral complex renal masses, probably complex cyst. Stable since .
[2022-06-18 14:06] LABS: Blood Urea Nitrogen 17 mg/dL (8-23)
[2022-06-18] MEDS: iohexol 350 mg/mL 500 mL Btl (per mL) IV (14:20)
== END 2022-06-18 13:36 | disposition home or self-care (01) ==
LOC: RAD 13:38
PROVIDERS: PCP Nurse Practitioner; Visit Provider Internal Medicine Hematology & Oncology
DX: D02.0 Carcinoma in situ of larynx (principal); J43.9 Emphysema, unspecified
CPT/HCPCS: 71260; 82565; 84520; Q9967

== ENCOUNTER 2022-07-10 14:43 | Oncology outpatient (recurring) (ONCR) | payer OTHER, SELFPAY ==
[2022-07-09 16:11] LABS: Basophils % 0.9 %; Eosinophils # 0.2 10^3/uL (0.0-0.8); Eosinophils % 4.4 %; Hematocrit 37.7 % (42.0-52.0); Hemoglobin 12.7 g/dL (11.7-16.6); Lymphocytes # 1.3 10^3/uL (0.8-4.8); Lymphocytes % 30.9 %; Mean Corpuscular HGB Conc 33.7 g/dL (30.0-36.0); Mean Corpuscular Hemoglobin 32.2 pg (28.0-34.0); Mean Corpuscular Volume 95.4 fl (80-94); Mean Platelet Volume 9.2 fL (7.4-10.4); Monocytes # 0.4 10^3/uL (0.2-0.9); Monocytes % 8.5 %; Neutrophils # 2.39 10^3/uL (1.8-7.7); Neutrophils % 55.1 %; Nucleated Red Blood Cells % 0 %; Platelet Count 121 10^3/cmm (130-400); Red Blood Count 3.95 10^6/uL (4.1-5.3); Red Cell Distribution Width 11.9 % (12.1-15.1); White Blood Count 4.3 10^3/uL (4.0-10.0)
[2022-07-09 16:45] LABS: Alanine Aminotransferase 13 U/L (0-41); Albumin Level 4.2 g/dL (3.5-5.2); Alkaline Phosphatase 48 U/L (40-130); Anion Gap 12.4 (5-19); Aspartate Amino Transferase 21 U/L (0-40); Blood Urea Nitrogen 19 mg/dL (8-23); Calcium 9.1 mg/dL (8.5-10.5); Carbon Dioxide 25 mmol/L (22-29); Chloride 103 mmol/L (98-107); Globulin 3.1 g/dL (1.3-4.6); Glucose 90 mg/dL (65-115); Osmolality Calculated 284 mOsm/kg (285-295); Potassium 4.4 mmol/L (3.5-5.1); Sodium 136 mmol/L (136-145); Total Bilirubin 0.5 mg/dL (0.15-1.2); Total Protein 7.3 g/dL (6.6-8.7)
== END 2022-07-20 23:59 | disposition home or self-care (01) ==
PROVIDERS: PCP Nurse Practitioner; Visit Provider Internal Medicine Hematology & Oncology
DX: D02.0 Carcinoma in situ of larynx (principal); K57.90 Diverticulosis of intestine, part unspecified, without perforation or abscess without bleeding; J43.9 Emphysema, unspecified; K80.20 Calculus of gallbladder without cholecystitis without obstruction; N28.1 Cyst of kidney, acquired; D69.6 Thrombocytopenia, unspecified; Z85.89 Personal history of malignant neoplasm of other organs and systems; F17.210 Nicotine dependence, cigarettes, uncomplicated
CPT/HCPCS: 80053; 85025; 99214

== ENCOUNTER 2023-03-27 12:08 | Oncology outpatient (recurring) (ONCR) | payer OTHER, SELFPAY ==
[2023-03-27 12:23] VITALS: BP 137/81; PULSE 77; RESP 16; TEMP 37.1; O2SAT 97
[2023-03-27 12:49] LABS: Basophils % 0.9 %; Eosinophils # 0.3 10^3/uL (0.0-0.8); Eosinophils % 5.6 %; Lymphocytes # 1.2 10^3/uL (0.8-4.8); Lymphocytes % 26.1 %; Mean Corpuscular HGB Conc 34.5 g/dL (30-55); Mean Corpuscular Volume 95.7 fl (82-101); Mean Platelet Volume 9.3 fL (7.4-10.4); Monocytes # 0.5 10^3/uL (0.2-0.9); Monocytes % 10.2 %; Neutrophils # 2.64 10^3/uL (1.8-7.7); Nucleated Red Blood Cells % 0 %; Platelet Count 125 10^3/cmm (157-399); Red Blood Count 4.18 10^6/uL (3.85-5.65); Red Cell Distribution Width 12.6 % (12.1-15.1); White Blood Count 4.63 10^3/uL (3.29-11.43)
[2023-03-27 13:04] LABS: Alanine Aminotransferase 9 U/L (0-41); Albumin Level 4.5 g/dL (3.5-5.2); Alkaline Phosphatase 78 U/L (40-130); Anion Gap 17.9 (5-19); Aspartate Amino Transferase 18 U/L (0-40); Blood Urea Nitrogen 19 mg/dL (8-23); Calcium 9.5 mg/dL (8.5-10.5); Carbon Dioxide 22 mmol/L (22-29); Chloride 102 mmol/L (98-107); Creatinine Clr Calc Pharmacy 63.4206; Globulin 3.2 g/dL (1.3-4.6); Glucose 99 mg/dL (65-115); Osmolality Calculated 286 mOsm/kg (285-295); Potassium 4.9 mmol/L (3.5-5.1); Sodium 137 mmol/L (136-145); Total Bilirubin 0.8 mg/dL (0.15-1.2); Total Protein 7.7 g/dL (6.6-8.7)
[2023-03-27 15:52] LABS: Thyroid Stimulating Hormone 4.01 uIU/mL (0.27-4.20)
== END 2023-04-21 23:59 | disposition home or self-care (01) ==
PROVIDERS: Internal Medicine Hematology & Oncology; Nurse Practitioner Family; PCP Nurse Practitioner; Visit Provider Internal Medicine Hematology & Oncology
DX: D02.0 Carcinoma in situ of larynx (principal); K57.90 Diverticulosis of intestine, part unspecified, without perforation or abscess without bleeding; J43.9 Emphysema, unspecified; K80.20 Calculus of gallbladder without cholecystitis without obstruction; N28.1 Cyst of kidney, acquired; D69.6 Thrombocytopenia, unspecified; F17.210 Nicotine dependence, cigarettes, uncomplicated; Z85.89 Personal history of malignant neoplasm of other organs and systems; R49.0 Dysphonia
CPT/HCPCS: 36415; 80053; 84443; 85025; 99214

== ENCOUNTER 2023-06-27 09:08 | Outpatient (CLI) | payer OTHER, SELFPAY ==
--- NOTE | 2023-06-27 09:12 | CT_ITS ---
WS: [id number] CT NECK TECHNIQUE: Contrast-enhanced CT of the neck with coronal and sagittal reformatted images. CLINICAL INFORMATION: head and neck cancer COMPARISON: None. DLP: 137.[address] scans at [facility] use at least one of these dose optimization techniques: automated e xposure control; mA and/or kV adjustment per patient size (includes targeted exams where dose is matc hed to clinical indication); or iterative reconstruction. FINDINGS: Normal RIGHT parotid gland. Presumed resection LEFT parotid gland. Normal submandibular gla nds. Postoperative or treatment-related changes in the LEFT neck with thickening of the platysma and induration in the LEFT neck soft tissues. No evidence of suspicious enhancing mass or lesion.. Partial opacification with mucosal thickening ethmoid air cells. Mild mucosal thickening in the maxil elvie sinuses. Sphenoid sinuses are well aerated with mild mucosal thickening. Mastoid air cells are w ell aerated. Normal posterior nasopharynx. Normal parapharyngeal fat. No evidence of supraglottic or glottic mass. Normal epiglottis. Normal glottis and subglottic airway. Normal thyroid. Lung apices ar e well aerated. No cervical lymphadenopathy. Moderate spondylitic changes cervical spine. IMPRESSION: 1. Presumed resection of the LEFT parotid gland with treatment-related changes in the LEFT neck. Ross atment-related thickening of the LEFT platysma with mild treatment related induration in the LEFT nec k soft tissues. 2. No cervical lymphadenopathy. No suspicious enhancing lesions. 3. Normal posterior nasopharynx. 4. No evidence of supraglottic or glottic mass. 5. Moderate spondylitic changes cervical spine. 6. Mild inflammatory changes in the paranasal sinuses.
[2023-06-27 09:57] LABS: Blood Urea Nitrogen 13 mg/dL (8-23)
[2023-06-27] MEDS: iohexol 350 mg/mL 500 mL Btl (per mL) IV (10:06)
== END 2023-06-27 09:09 | disposition home or self-care (01) ==
LOC: RAD 09:09
PROVIDERS: PCP Nurse Practitioner; Visit Provider Internal Medicine Hematology & Oncology
DX: C76.0 Malignant neoplasm of head, face and neck (principal); M62.89 Other specified disorders of muscle; M79.89 Other specified soft tissue disorders; Z98.890 Other specified postprocedural states
CPT/HCPCS: 70491; 82565; 84520; Q9967

== ENCOUNTER 2023-10-10 12:54 | Oncology outpatient (recurring) (ONCR) | payer OTHER, SELFPAY | END 2023-10-20 23:59 | disposition home or self-care (01) | LOC: ONCMED 12:55 | PROVIDERS: PCP Nurse Practitioner; Visit Provider Internal Medicine Medical Oncology | DX: D02.0 Carcinoma in situ of larynx (principal) | CPT/HCPCS: 99214 ==

== ENCOUNTER 2023-11-20 12:05 | Oncology outpatient (recurring) (ONCR) | payer OTHER, SELFPAY ==
--- NOTE | 2023-11-14 12:13 | USCV_ITS ---
StevensTorito mooney Age: 73 Gender: M : 1950 Exam Date: 11/14/2023 12:21 Ordering Phys: Selma Taylor Technologist: JERARDO Exam Location: [facility] Indication: SCREENING FOR AAA HISTORY: SCREENING FOR AAA Diameter (cm) AP x Transverse x Length Velocity (cm/s) Waveform Prox Aorta: 1.49 x 1.97 x 91.90 Mid Aorta: 1.43 x 1.70 x 122.60 Distal Aorta: 1.96 x 1.96 x 119.80 Right Iliac Prox: 1.00 x 1.14 x 85.30 Left Iliac Prox: 1.43 x 1.19 x 160.50 Stent Prox Landing x x Aneurysmal Sac Max x x Lt Lat Sac Dim Rt Lat Sac Dim Stent Dist Landing x x Right Iliac Stent x x Left Iliac Stent x x Right Renal Art Left Renal Art FINDINGS: Comparison: none available. Ectatic abdominal aorta with evidence of atherosclerotic plaque noted. No evidence of abdominal aortic aneurysm. There is evidence of atherosclerotic plaque no significan stenosis in the right common iliac artery. There is evidence of atherosclerotic plaque no significan stenosis in the left common iliac artery. CONCLUSIONS No evidence of abdominal aortic or bilateral iliac aneurysm. Dr. Waleska Shaffer DO (Electronically Signed) Final Date: 14 November 2023 14:00 S
== END 2023-11-20 23:59 | disposition home or self-care (01) ==
PROVIDERS: PCP Nurse Practitioner; Visit Provider Internal Medicine Medical Oncology
DX: Z08 Encounter for follow-up examination after completed treatment for malignant neoplasm (principal); Z85.831 Personal history of malignant neoplasm of soft tissue; F32.A Depression, unspecified; Z92.3 Personal history of irradiation; R49.0 Dysphonia; F17.210 Nicotine dependence, cigarettes, uncomplicated
CPT/HCPCS: 76706; 99214

== ENCOUNTER 2024-01-15 13:26 | Oncology outpatient (recurring) (ONCR) | payer OTHER, SELFPAY ==
[2024-01-15 13:56] LABS: Basophils % 0.8 %; Eosinophils # 0.1 10^3/uL (0.0-0.8); Eosinophils % 3.1 %; Hematocrit 37.6 % (37-53); Lymphocytes # 0.9 10^3/uL (0.8-4.8); Lymphocytes % 22.4 %; Mean Corpuscular HGB Conc 34.6 g/dL (30-55); Mean Corpuscular Hemoglobin 33.2 pg (27-33); Mean Corpuscular Volume 95.9 fl (82-101); Mean Platelet Volume 9.7 fL (7.4-10.4); Monocytes # 0.4 10^3/uL (0.2-0.9); Monocytes % 9.5 %; Neutrophils # 2.48 10^3/uL (1.8-7.7); Neutrophils % 63.9 %; Nucleated Red Blood Cells % 0 %; Platelet Count 102 10^3/cmm (157-399); Red Blood Count 3.92 10^6/uL (3.85-5.65); Red Cell Distribution Width 12.6 % (12.1-15.1); White Blood Count 3.88 10^3/uL (3.29-11.43)
[2024-01-15 14:20] LABS: Alanine Aminotransferase 11 U/L (0-41); Albumin Level 4.2 g/dL (3.5-5.2); Alkaline Phosphatase 67 U/L (40-130); Anion Gap 17.5 (5-19); Aspartate Amino Transferase 20 U/L (0-40); Blood Urea Nitrogen 14 mg/dL (8-23); Calcium 9.2 mg/dL (8.5-10.5); Carbon Dioxide 23 mmol/L (22-29); Chloride 100 mmol/L (98-107); Globulin 2.9 g/dL (1.3-4.6); Glucose 98 mg/dL (65-115); Osmolality Calculated 282 mOsm/kg (285-295); Potassium 4.5 mmol/L (3.5-5.1); Sodium 136 mmol/L (136-145); Total Bilirubin 0.6 mg/dL (0.15-1.2); Total Protein 7.1 g/dL (6.6-8.7)
[2024-01-15 17:38] LABS: Thyroid Stimulating Hormone 4.87 uIU/mL (0.27-4.20)
== END 2024-01-20 23:59 | disposition home or self-care (01) ==
PROVIDERS: Nurse Practitioner Family; PCP Nurse Practitioner; Visit Provider Internal Medicine Medical Oncology
DX: F17.210 Nicotine dependence, cigarettes, uncomplicated; Z92.3 Personal history of irradiation; F32.A Depression, unspecified; Z79.899 Other long term (current) drug therapy; R49.0 Dysphonia
CPT/HCPCS: 36415; 80053; 84443; 85025; 99213

== ENCOUNTER 2024-04-01 13:28 | Oncology outpatient (recurring) (ONCR) | payer OTHER, SELFPAY ==
[2024-04-01 13:59] LABS: Basophils % 0.3 %; Eosinophils # 0.1 10^3/uL (0.0-0.8); Eosinophils % 2.5 %; Hematocrit 39.2 % (37-53); Lymphocytes # 0.7 10^3/uL (0.8-4.8); Lymphocytes % 18.6 %; Mean Corpuscular HGB Conc 33.7 g/dL (30-55); Mean Corpuscular Hemoglobin 33.3 pg (27-33); Mean Platelet Volume 9.5 fL (7.4-10.4); Monocytes # 0.4 10^3/uL (0.2-0.9); Monocytes % 9.6 %; Neutrophils # 2.73 10^3/uL (1.8-7.7); Neutrophils % 68.7 %; Nucleated Red Blood Cells % 0 %; Platelet Count 103 10^3/cmm (157-399); Red Blood Count 3.96 10^6/uL (3.85-5.65); White Blood Count 3.97 10^3/uL (3.29-11.43)
[2024-04-01 14:16] LABS: Alanine Aminotransferase 9 U/L (0-41); Albumin Level 4.3 g/dL (3.5-5.2); Alkaline Phosphatase 63 U/L (40-130); Anion Gap 14.1 (5-19); Aspartate Amino Transferase 23 U/L (0-40); Blood Urea Nitrogen 16 mg/dL (8-23); Calcium 9.7 mg/dL (8.5-10.5); Carbon Dioxide 28 mmol/L (22-29); Chloride 100 mmol/L (98-107); Globulin 3.2 g/dL (1.3-4.6); Glucose 115 mg/dL (65-115); Osmolality Calculated 286 mOsm/kg (285-295); Potassium 5.1 mmol/L (3.5-5.1); Sodium 137 mmol/L (136-145); Total Bilirubin 0.6 mg/dL (0.15-1.2); Total Protein 7.5 g/dL (6.6-8.7)
== END 2024-04-21 23:59 | disposition home or self-care (01) ==
PROVIDERS: Nurse Practitioner Family; PCP Nurse Practitioner; Visit Provider Internal Medicine Medical Oncology
DX: F17.210 Nicotine dependence, cigarettes, uncomplicated (principal); Z92.3 Personal history of irradiation; F32.A Depression, unspecified; Z79.899 Other long term (current) drug therapy; R49.0 Dysphonia; C76.0 Malignant neoplasm of head, face and neck
CPT/HCPCS: 36415; 80053; 85025; 99214

== ENCOUNTER → 2024-05-21 12:38 | Outpatient (BNVA) | payer OTHER, SELFPAY | PROVIDERS: PCP Nurse Practitioner; Referring Provider Nurse Practitioner Family; Visit Provider Dermatology | DX: L30.9 Dermatitis, unspecified (principal); L82.1 Other seborrheic keratosis; L57.8 Other skin changes due to chronic exposure to nonionizing radiation; Z92.3 Personal history of irradiation | CPT/HCPCS: 11104; 99204 ==

== ENCOUNTER → 2024-06-08 12:42 | Outpatient (BNVA) | payer OTHER, SELFPAY | PROVIDERS: PCP Nurse Practitioner; Visit Provider Dermatology | DX: L27.0 Generalized skin eruption due to drugs and medicaments taken internally (principal); L57.8 Other skin changes due to chronic exposure to nonionizing radiation; Z92.3 Personal history of irradiation | CPT/HCPCS: 99214 ==

== ENCOUNTER 2024-07-01 12:53 | Oncology outpatient (recurring) (ONCR) | payer OTHER, SELFPAY ==
[2024-07-01 13:09] LABS: Basophils % 0.7 %; Eosinophils # 0.1 10^3/uL (0.0-0.8); Eosinophils % 3.1 %; Hematocrit 37.6 % (37-53); Lymphocytes # 0.9 10^3/uL (0.8-4.8); Lymphocytes % 19.1 %; Mean Corpuscular HGB Conc 34.3 g/dL (30-55); Mean Corpuscular Volume 96.2 fl (82-101); Mean Platelet Volume 9.1 fL (7.4-10.4); Monocytes # 0.4 10^3/uL (0.2-0.9); Monocytes % 8.7 %; Neutrophils # 3.07 10^3/uL (1.8-7.7); Neutrophils % 68.2 %; Nucleated Red Blood Cells % 0 %; Platelet Count 101 10^3/cmm (157-399); Red Blood Count 3.91 10^6/uL (3.85-5.65); Red Cell Distribution Width 12.5 % (12.1-15.1)
[2024-07-01 13:34] LABS: Alanine Aminotransferase 10 U/L (0-41); Albumin Level 4.2 g/dL (3.5-5.2); Alkaline Phosphatase 64 U/L (40-130); Anion Gap 14.5 (5-19); Aspartate Amino Transferase 22 U/L (0-40); Blood Urea Nitrogen 13 mg/dL (8-23); Calcium 9.2 mg/dL (8.5-10.5); Carbon Dioxide 24 mmol/L (22-29); Chloride 105 mmol/L (98-107); Globulin 3.3 g/dL (1.3-4.6); Glucose 107 mg/dL (65-115); Osmolality Calculated 289 mOsm/kg (285-295); Potassium 4.5 mmol/L (3.5-5.1); Sodium 139 mmol/L (136-145); Total Bilirubin 0.7 mg/dL (0.15-1.2); Total Protein 7.5 g/dL (6.6-8.7)
== END 2024-07-20 23:59 | disposition home or self-care (01) ==
PROVIDERS: Nurse Practitioner Family; PCP Nurse Practitioner; Visit Provider Internal Medicine
DX: Z08 Encounter for follow-up examination after completed treatment for malignant neoplasm (principal); Z85.89 Personal history of malignant neoplasm of other organs and systems; R49.0 Dysphonia; R21 Rash and other nonspecific skin eruption; Z91.89 Other specified personal risk factors, not elsewhere classified; F17.210 Nicotine dependence, cigarettes, uncomplicated; Z92.3 Personal history of irradiation; Z85.21 Personal history of malignant neoplasm of larynx; Z92.21 Personal history of antineoplastic chemotherapy; R53.83 Other fatigue; F41.8 Other specified anxiety disorders
CPT/HCPCS: 36415; 80053; 85025; 99213

== ENCOUNTER → 2024-09-10 12:57 | Outpatient (BNVA) | payer OTHER, SELFPAY | PROVIDERS: PCP Nurse Practitioner; Visit Provider Dermatology | DX: L27.0 Generalized skin eruption due to drugs and medicaments taken internally (principal); L81.0 Postinflammatory hyperpigmentation; L57.8 Other skin changes due to chronic exposure to nonionizing radiation; D69.2 Other nonthrombocytopenic purpura; D17.22 Benign lipomatous neoplasm of skin and subcutaneous tissue of left arm; L57.0 Actinic keratosis | CPT/HCPCS: 99214 ==

== ENCOUNTER 2025-01-14 13:42 | Oncology outpatient (recurring) (ONCR) | payer OTHER, SELFPAY ==
[2025-01-14 14:00] LABS: Hematocrit 34.9 % (37-53); Hemoglobin 11.80 g/dL (11.27-16.99); Mean Corpuscular HGB Conc 33.8 g/dL (30-55); Mean Corpuscular Hemoglobin 32.5 pg (27-33); Mean Corpuscular Volume 96.1 fl (82-101); Nucleated Red Blood Cells % 0 %; Platelet Count 98 10^3/cmm (157-399); Red Blood Count 3.63 10^6/uL (3.85-5.65); White Blood Count 2.89 10^3/uL (3.29-11.43)
[2025-01-14 14:23] LABS: Alanine Aminotransferase 13 U/L (0-41); Albumin Level 4.2 g/dL (3.5-5.2); Alkaline Phosphatase 56 U/L (40-130); Anion Gap 14.8 (5-19); Aspartate Amino Transferase 23 U/L (0-40); Blood Urea Nitrogen 16 mg/dL (8-23); Calcium 9.2 mg/dL (8.5-10.5); Carbon Dioxide 26 mmol/L (22-29); Chloride 102 mmol/L (98-107); Creatinine Clr Calc Pharmacy 61.8825; Globulin 2.9 g/dL (1.3-4.6); Glucose 97 mg/dL (65-115); Osmolality Calculated 287 mOsm/kg (285-295); Potassium 4.8 mmol/L (3.5-5.1); Sodium 138 mmol/L (136-145); Total Protein 7.1 g/dL (6.6-8.7)
[2025-01-14 15:56] LABS: Thyroid Stimulating Hormone 6.11 uIU/mL (0.27-4.20)
[2025-01-15 11:33] LABS: Free T4 Free Thyroxine 0.87 ng/dL (0.82-1.77)
== END 2025-01-19 23:59 | disposition home or self-care (01) ==
PROVIDERS: Nurse Practitioner Family; PCP Nurse Practitioner; Visit Provider Internal Medicine
DX: Z08 Encounter for follow-up examination after completed treatment for malignant neoplasm (principal); Z85.89 Personal history of malignant neoplasm of other organs and systems; F17.210 Nicotine dependence, cigarettes, uncomplicated; R49.0 Dysphonia; D72.819 Decreased white blood cell count, unspecified; R53.83 Other fatigue; S49.91XA Unspecified injury of right shoulder and upper arm, initial encounter; W19.XXXA Unspecified fall, initial encounter; R63.4 Abnormal weight loss; Z68.21 Body mass index [BMI] 21.0-21.9, adult; Z91.89 Other specified personal risk factors, not elsewhere classified; Z92.3 Personal history of irradiation
CPT/HCPCS: 36415; 80053; 83615; 84439; 84443; 84481; 85025; 99214

== ENCOUNTER 2025-02-05 13:15 | Oncology outpatient (recurring) (ONCR) | payer OTHER, SELFPAY ==
--- NOTE | 2025-01-25 14:30 | CTR_ITS ---
PROCEDURE INFORMATION: Exam: CT Neck With Contrast Exam date and time: 01/25/2025 2:55 PM Age: 74 years old Clinical indication: Other: Unintentional weight loss >10% over 3 months; HX of throat cancer, 30 pound weight loss in 2 months TECHNIQUE: Imaging protocol: Computed tomography of the neck with contrast. Radiation optimization: All CT scans at this facility use at least one of these dose optimization techniques: automated exposure control; mA and/or kV adjustment per patient size (includes targeted exams where dose is matched to clinical indication); or iterative reconstruction. Contrast material: OMNI 350; Contrast volume: 75 ml; Contrast route: INTRAVENOUS (IV); COMPARISON: CT neck w con* [id number] 06/27/2023 10:01 AM RADIATION DOSE METRICS: Total DLP (mGy-cm): 140.99 FINDINGS: Salivary glands: Unchanged postsurgical appearance to the left parotid gland. Thickening of the proximal left sternocleidomastoid muscle is also unchanged. Other major salivary glands are unremarkable. Pharynx: No evidence pharyngeal or hypopharyngeal mass. Unchanged prevertebral soft tissues which remain normal in thickness. Larynx: The laryngeal airway is closed. Laryngeal mass is not identified. Thyroid: Normal. No enlarged or calcified nodules. Trachea: Visualized trachea is unremarkable. Lungs: Unremarkable as visualized. Lymph nodes: Unremarkable. No lymphadenopathy. Bones/joints: Severe degenerative disc disease and degenerative facet arthropathy again noted in cervical spine. A suspicious osseous lesion has not developed. Soft tissues: See Salivary glands finding. CT/CT neck w con* [id number] IMPRESSION: 1. No acute findings. 2. Unchanged heterogeneous thickening of the proximal left sternocleidomastoid muscle, favoring post treatment scarring. Further exclusion of recurrent disease in this location can include PET scan.
--- NOTE | 2025-01-25 14:30 | CTR_ITS ---
PROCEDURE INFORMATION: Exam: CT Chest With Contrast; Diagnostic Exam date and time: 01/25/2025 2:49 PM Age: 74 years old Clinical indication: Other: Unexplained weight loss; Prior surgery; Surgery date: 6+ months; Surgery type: Pelvis, left hip; HX of throat cancer, 30lb weight losss in 2 months; Additional info: Significant weight loss, significant weight loss > 10% for unknown reason TECHNIQUE: Imaging protocol: Diagnostic computed tomography of the chest with contrast. Radiation optimization: All CT scans at this facility use at least one of these dose optimization techniques: automated exposure control; mA and/or kV adjustment per patient size (includes targeted exams where dose is matched to clinical indication); or iterative reconstruction. Contrast material: OMNI 350; Contrast volume: 75 ml; Contrast route: INTRAVENOUS (IV); COMPARISON: CT chest w con* [id number] 06/18/2022 2:09 PM RADIATION DOSE METRICS: Total DLP (mGy-cm): 602.81 FINDINGS: Lungs: There is moderate architectural changes of centrilobular emphysema. Pleural spaces: Unremarkable. No pneumothorax. No pleural effusion. Heart: Unremarkable. No cardiomegaly. No pericardial effusion. Coronary arteries: There is coronary artery calcification. Lymph nodes: There are small sub threshold axillary lymph nodes. There are small sub threshold mediastinal lymph nodes. Vasculature: The thoracic aorta is normal in caliber with mild marginal calcified plaque. Bones/joints: There is no acute osseous abnormality appreciated. Degenerative endplate changes are present throughout. Soft tissues: There is a small left-sided Bochdalek's type hernia. COMMENTS: The presence of pulmonary emphysema on CT is an independent risk factor for lung cancer. In the absence of a history or active diagnosis of lung cancer, it is recommended that this patient with emphysema be evaluated for enrollment in a low dose CT lung cancer screening program. PROCEDURE INFORMATION: Exam: CT Abdomen And Pelvis With Contrast Exam date and time: 01/25/2025 2:49 PM Age: 74 years old Clinical indication: Other: Unexplained weight loss; Prior surgery; Surgery date: 6+ months; Surgery type: Pelvis, left hip; HX of throat cancer, 30lb weight losss in 2 months; Additional info: Significant weight loss, significant weight loss > 10% for unknown reason TECHNIQUE: Imaging protocol: Computed tomography of the abdomen and pelvis with contrast. Radiation optimization: All CT scans at this facility use at least one of these dose optimization techniques: automated exposure control; mA and/or kV adjustment per patient size (includes targeted exams where dose is matched to clinical indication); or iterative reconstruction. Contrast material: OMNI 350; Contrast volume: 75 ml; Contrast route: INTRAVENOUS (IV); COMPARISON: CT chest w con* [id number] 06/18/2022 2:09 PM RADIATION DOSE METRICS: Total DLP (mGy-cm): 602.81 FINDINGS: Liver: There is focal fatty replacement adjacent to the fissure for the falciform ligament. Gallbladder and biliary ducts: There is cholelithiasis with single large central gallstone within the body of the gallbladder. Pancreas: Normal. No ductal dilation. Spleen: Normal. No splenomegaly. Adrenal glands: Normal. No mass. Kidneys and ureters: There are multiple small bilateral renal cortical hypodensities. The majority these are too small to accurately characterize. There is a definitive cyst at the superior pole of the right kidney by Hounsfield units. There is a small 2 mm nonobstructing right renal calculus. Stomach and bowel: There is a large volume of stool throughout the colon. Appendix: No evidence of appendicitis. Intraperitoneal space: Unremarkable. No free air. No significant fluid collection. Vasculature: The abdominal aorta is normal in caliber with moderate marginal intermittent calcified plaque. This extends into the iliac vessels. 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 Lymph nodes: Unremarkable. No enlarged lymph nodes. Urinary bladder: Unremarkable as visualized. Reproductive: Unremarkable as visualized. Bones/joints: Artifact related to left hip arthroplasty obscures detail through the pelvis. There is an old left inferior pubic ramus fracture. There is prominent degenerative changes throughout the lumbar spine. Soft tissues: Unremarkable. CT/CT chest abdpel w/*[id number] IMPRESSION: 1. No acute process 2. Stable centrilobular emphysema IMPRESSION: 1. No acute process 2. Cholelithiasis 3. Nonobstructing right nephrolithiasis 4. Fairly large volume of colonic stool suggesting constipation 5. Multiple renal hypodensities statistically most likely representing benign cysts. This could be further characterized by ultrasound as clinically indicated. COMMENTS: Consistent with the [employer]'s Incidental Findings Committee white paper (J Am Precious Radiol 2018): Any incidental renal lesion less than 1 cm or classified as too small to characterize, or any incidental cystic renal lesion characterized as simple-appearing, is likely benign. No follow-up imaging is recommended for these lesions per consensus recommendations based on imaging criteria.
[2025-01-25] MEDS: iohexol 350 mg/mL 500 mL Btl (per mL) PO (14:56)
[2025-01-25] MEDS: iohexol 350 mg/mL 500 mL Btl (per mL) IV ×2 (14:57→14:58)
--- NOTE | 2025-02-05 13:15 | US_ITS ---
WS: [id number] RENAL ULTRASOUND HISTORY: multiple renal masses COMPARISON: 01/25/2025 TECHNIQUE: 2-D and color Doppler imaging of the kidney submitted. Right kidney: 9.3 cm x 5.3 cm x 5.8 cm. Cortex: 0.8 cm Normal size kidney. Only a single cortical cyst identified in the lower pole measures 1.0 x 1.0 x 1.0 cm. Not all of the cyst identified on the prior CT are visualized, probably due to their small size. Left kidney: 9.1 cm x 4.1 cm x 4.1 cm. Cortex: 1.1 cm Normal size with no hydronephrosis. Several cortical cysts are identified. The largest in the mid kidney 1.1 x 1.9 x 1.3 cm. No solid mass or obstruction. Aorta: Normal. Urinary Bladder: Normal distention. Cholelithiasis without evidence for acute cholecystitis. US/US renal BI* [id number] IMPRESSION: 1. Bilateral renal cysts. No obstruction. 2. Not all of the cortical hypodensities seen on the prior CT from 01/25/2025 a re identified due to their small size. 3. Cholelithiasis without acute cholecystitis.
== END 2025-02-19 23:59 | disposition home or self-care (01) ==
LOC: RAD 02-06 → ONCMED 02-08 09:53
PROVIDERS: PCP Nurse Practitioner; Visit Provider Internal Medicine
DX: N28.89 Other specified disorders of kidney and ureter; N28.1 Cyst of kidney, acquired; K80.20 Calculus of gallbladder without cholecystitis without obstruction; Z53.9 Procedure and treatment not carried out, unspecified reason
CPT/HCPCS: 70491; 71260; 74177; 76770